=== PATIENT | male | born 1965 | race Caucasian/White ===

== ENCOUNTER → 2020-07-04 | Outpatient (CLI) | payer BC ==
[2020-07-04 08:23] LABS: HEMATOCRIT 42.8 % (42.0-52.0); MEAN CELL VOLUME 88.4 fl (80.0-94.0); MEAN CORPUSCULAR HGB 29.5 pg (27.0-31.0); MEAN CORPUSCULAR HGB CONC 33.4 g/dl (33.0-37.0); MEAN PLATELET VOLUME 9.1 fl (9.6-12.3); RED BLOOD COUNT 4.84 10*6/uL (4.50-5.90); RED CELL DISTRI WIDTH 12.2 % (0-14.5); WHITE BLOOD COUNT 4.8 10*3/uL (4.8-10.8)
[2020-07-04 08:53] LABS: ALBUMIN 3.8 gm/dl (3.1-4.5); ALKALINE PHOSPHATASE 86 U/L (45-117); BUN 16 mg/dl (7-24); CHLORIDE 107 mmol/L (98-107); CHOLESTEROL 175 mg/dL (<200); HDL CHOLESTEROL 45 mg/dl (40-60); LDL CHOLESTEROL 107 mg/dL (9-159); POTASSIUM 4.4 mmol/L (3.5-5.1); SGOT/AST 55 IU/L (3-35); SGPT/ALT 105 U/L (12-78); SODIUM 140 mmol/L (136-145); TOTAL PROTEIN 7.3 gm/dL (6.4-8.2); TRIGLYCERIDES 114 mg/dl (<150); VLDL CHOLESTEROL 23 mg/dL (6-40)
== END | disposition home or self-care (01) ==
LOC: LAB 07:41
PROVIDERS: ATTEND Nurse Practitioner Primary Care
DX: I10 Essential (primary) hypertension (principal); E78.1 Pure hyperglyceridemia; E55.9 Vitamin D deficiency, unspecified

== ENCOUNTER → 2020-07-18 | Outpatient (CLI) | payer BC ==
[2020-07-20 08:06] LABS: HEP B CORE AB, IGM Negative (Negative); HEPATITIS B SURFACE AG Negative (Negative); HEPATITIS C VIRUS ANTIBODY 0.1 s/co (0.0-0.9)
== END | disposition home or self-care (01) ==
LOC: LAB 08:17
PROVIDERS: ATTEND Nurse Practitioner Primary Care
DX: R74.9 Abnormal serum enzyme level, unspecified (principal)

== ENCOUNTER → 2020-08-23 | Outpatient (CLI) | payer BC ==
[2020-08-23 08:55] LABS: ALBUMIN 3.7 gm/dl (3.1-4.5); ALKALINE PHOSPHATASE 83 U/L (45-117); BUN 18 mg/dl (7-24); CHLORIDE 112 mmol/L (98-107); CREATININE 0.79 mg/dL (0.70-1.30); POTASSIUM 4.4 mmol/L (3.5-5.1); SGOT/AST 38 IU/L (3-35); SGPT/ALT 76 U/L (12-78); SODIUM 143 mmol/L (136-145); TOTAL PROTEIN 7.1 gm/dL (6.4-8.2)
== END | disposition home or self-care (01) ==
LOC: LAB 07:52
PROVIDERS: ATTEND Nurse Practitioner Primary Care
DX: E55.9 Vitamin D deficiency, unspecified (principal); I10 Essential (primary) hypertension; R74.8 Abnormal levels of other serum enzymes

== ENCOUNTER → 2022-02-04 | Outpatient (CLI) | payer BC ==
[2022-02-04 09:10] LABS: HEMATOCRIT 41.3 % (42.0-52.0); MEAN CELL VOLUME 86.9 fl (80.0-94.0); MEAN CORPUSCULAR HGB 30.7 pg (27.0-31.0); MEAN CORPUSCULAR HGB CONC 35.4 g/dl (33.0-37.0); MEAN PLATELET VOLUME 8.7 fl (9.6-12.3); RED BLOOD COUNT 4.75 10*6/uL (4.50-5.90); RED CELL DISTRI WIDTH 12.5 % (0-14.5); WHITE BLOOD COUNT 5.4 10*3/uL (4.8-10.8)
[2022-02-04 09:27] LABS: ALKALINE PHOSPHATASE 85 U/L (45-117); BUN 14 mg/dl (7-24); CHLORIDE 106 mmol/L (98-107); CHOLESTEROL 172 mg/dL (<200); CREATININE 0.78 mg/dL (0.70-1.30); LDL CHOLESTEROL 97 mg/dL (9-159); POTASSIUM 4.5 mmol/L (3.5-5.1); SGOT/AST 24 IU/L (3-35); SGPT/ALT 48 U/L (12-78); SODIUM 141 mmol/L (136-145); TOTAL PROTEIN 7.7 gm/dL (6.4-8.2); TRIGLYCERIDES 121 mg/dl (<150)
== END | disposition home or self-care (01) ==
LOC: LAB 08:52
PROVIDERS: ATTEND Physician Assistant
DX: Z12.5 Encounter for screening for malignant neoplasm of prostate (principal); I10 Essential (primary) hypertension

== ENCOUNTER → 2022-09-05 | Day surgery (SDC) | payer BC ==
[~2022-09-05] VITALS: Ht 182.8 cm; Wt 131.5 kg
[~2022-09-05] MED LIST: COZAAR25 M1 PO; MULTI-VITAMIN1 EACH PO; VITAMIN D31250 MC1 PO
[2022-09-05 09:23] VITALS: BP 148/76
[2022-09-05 10:27] VITALS: BP 105/48
[2022-09-05 10:42] VITALS: BP 112/62
[2022-09-05 10:54] VITALS: BP 123/75
== END | disposition home or self-care (01) ==
LOC: SDC 09-01 14:45
PROVIDERS: ATTEND Surgery
DX: Z12.11 Encounter for screening for malignant neoplasm of colon (principal); K57.30 Diverticulosis of large intestine without perforation or abscess without bleeding; I10 Essential (primary) hypertension; Z86.010 Personal history of colon polyps; M19.90 Unspecified osteoarthritis, unspecified site; Z98.890 Other specified postprocedural states

== ENCOUNTER → 2024-02-08 | Outpatient (CLI) | payer BC ==
[2024-02-08 07:21] LABS: BASO # 0.1 10*3/uL (0.0-0.1); BASO % 1.1 % (0.0-1.0); EOS # 0.2 10*3/uL (0.0-0.4); EOS % 3.2 % (1.0-4.0); HEMATOCRIT 44.1 % (42.0-52.0); LYMPH # 1.1 10*3/uL (1.3-4.4); LYMPH % 22.9 % (27.0-41.0); MEAN CELL VOLUME 88.9 fl (80.0-94.0); MEAN CORPUSCULAR HGB 30.2 pg (27.0-31.0); MEAN PLATELET VOLUME 8.4 fl (9.6-12.3); MONO # 0.4 10*3/uL (0.1-1.0); NEUT # 3.1 10*3/uL (2.3-7.9); NEUT % 64.4 % (47.0-73.0); PLATELET COUNT AUTOMATED 271 10*3/uL (130-400); RED BLOOD COUNT 4.96 10*6/uL (4.50-5.90); WHITE BLOOD COUNT 4.8 10*3/uL (4.8-10.8)
[2024-02-08 08:18] LABS: ALKALINE PHOSPHATASE 80 U/L (46-116); BUN 16 mg/dl (9-23); CHLORIDE 106 mmol/L (98-107); CHOLESTEROL 189 mg/dL (<200); LDL CHOLESTEROL 115 mg/dL (9-159); POTASSIUM 4.3 mmol/L (3.4-5.1); SGPT/ALT 77 U/L (5-49); TOTAL PROTEIN 7.6 gm/dL (6.0-8.0); TRIGLYCERIDES 118 mg/dl (<150)
== END | disposition home or self-care (01) ==
LOC: LAB 07:02
PROVIDERS: ATTEND Family Medicine
DX: I10 Essential (primary) hypertension (principal)